=== PATIENT | female | born 1965 | race Caucasian/White ===

== ENCOUNTER → 2016-06-08 | Outpatient (CLI) | payer BC ==
[~2016-06-08] MED LIST: ALBUTEROL17 GM INH; AMLODIPINE BESYL5 MG PO; AZELASTINE137 MCG/0.; FLONASE 0.05% N16 GM; LEVOXYL112 MC1 PO; LEXAPRO20 MG PO; MIMVEY 1-0.5 M1 EACH PO; PROTONIX PO; RELAFEN500 MG PO; REQUIP1 MG PO; SYMBICORT INH; TOPIRAMATE100 MG PO; ZYLOPRIM100 MG PO
--- NOTE | ~2016-06-08 | CT134 ---
[facility] A Service of [facility] & [facility] RADIOLOGY TEXT RESULTS PATIENT: FRENCH MELENDEZ LOCATION: CIVR : 63 UNIT #: [id number] AGE: [address]: CONSTANCE ROJO APRN SEX: F ORDER DR: [id number] [facility]. [place], [place] [address] [id number] O MR#: [id number] Acc #: [id number] NAME: FRENCH MELENDEZ : 1965 SEX: F STUDY DATE/TIME: 06/08/2016 10:14 UNIT: CIVR ROOM: STUDY DESCRIPTION: CT Guide Attending Physician: Constance Rojo Aprn Referring Physician: Constance Rojo Aprn Ordering Physician: Constance Rojo Aprn Primary Care Physician: Constance Rojo Aprn MEDICAL IMAGING REPORT This report is preliminary unless electronic signature is present EXAM CT-guided liver biopsy INDICATION Abnormal elevated liver function test. TECHNIQUE This CT examination was performed with one or more of the following radiation dose reduction techniques: automatic exposure control, adjustment of mA and/or kV according to patient size, and iterative reconstruction. PROCEDURE The risks, benefits, and alternatives to the procedure were explained to the patient, and signed, informed consent was obtained. She was placed supine on the CT scanner gantry. Preliminary CT scan was performed through the region of interest. An appropriate site overlying the patient's right hepatic lobe was selected. The overlying skin was marked. Patient was prepped and draped in the usual sterile fashion. Time-out was performed as per protocol. Skin and subcutaneous tissues were anesthetized with buffered lidocaine. Anesthesia needle was left in place. Repeat CT scan confirmed appropriate position of the needle. A 17-gauge coaxial needle was advanced into the right hepatic lobe. At this point, 3 core samples were obtained using an 18-gauge BioPince biopsy gun. Needle was removed and manual pressure was applied until hemostasis was obtained. Patient tolerated the procedure well and there were no immediate complications. Patient did receive conscious sedation consisting of 5 mg of Versed and 175 mcg of Fentanyl. Continuous monitoring was provided by the IVR nurse for a total of 50 minutes. IMPRESSION Technically successful CT-guided liver biopsy as noted above. CT was used during the procedure and permanent images were saved. [facility] A Service of [facility] & [facility] RADIOLOGY TEXT RESULTS PATIENT: FRENCH MELENDEZ LOCATION: [facility] : 63 UNIT #: [id number] AGE: [address]: CONSTANCE ROJO APRN SEX: F ORDER DR: Dictated by... Shivani Andrew M.D. THIS IS AN ELECTRONICALLY VERIFIED REPORT Shivani Andrew M.D. at 06/11/2016 8:19 AM TALA/santi TD: 06/09/2016 11:11 JOB #: [id number] MEDICAL IMAGING REPORT Page 1 of 1 COPY
[2016-06-08 08:44] LABS: HEMATOCRIT 39.8 % (35.0-45.0); HEMOGLOBIN 13.2 gm/dL (12.0-16.0); MEAN CELL VOLUME 91.7 FL (83-96); MEAN CORPUSCULAR HEMOGLOBIN 30.5 PG (28-34); MEAN CORPUSCULAR HGB CONC 33.2 g/dL (30-36); MEAN PLATELET VOLUME 8.2 FL (6.5-11.5); RED BLOOD COUNT 4.34 X10e (3.90-5.30); RED CELL DISTRIBUTION WIDTH 14.9 % (11.0-15.5); WHITE BLOOD COUNT 10.7 X10e3 (4.0-10.5)
[2016-06-08 08:57] LABS: INR 0.9; PARTIAL THROMBOPLASTIN TIME 24.3 SECONDS (23.5-31.3); PROTHROMBIN TIME (PATIENT) 9.2 SECONDS (9.6-11.5)
[2016-06-09 21:09] LABS: ANA SCREEN Negative (Negative)
== END | disposition home or self-care (01) ==
LOC: CIVR 08:03
PROVIDERS: Nurse Practitioner
DX: K75.9 Inflammatory liver disease, unspecified (principal); K74.0 Hepatic fibrosis; R94.5 Abnormal results of liver function studies; J45.909 Unspecified asthma, uncomplicated
CPT/HCPCS: 36415; 77012; 82728; 83516; 83520; 85027; 85610; 85730; 86038; 86039; 88307; 88313; J2250; J3010

== ENCOUNTER → 2016-09-27 | Outpatient (CLI) | payer BC ==
[2016-09-27 16:26] LABS: HEMATOCRIT 38.1 % (35.0-45.0); HEMOGLOBIN 12.5 gm/dL (12.0-16.0); MEAN CELL VOLUME 91.7 FL (83-96); MEAN CORPUSCULAR HEMOGLOBIN 30.2 PG (28-34); MEAN CORPUSCULAR HGB CONC 32.9 g/dL (30-36); MEAN PLATELET VOLUME 7.9 FL (6.5-11.5); RED BLOOD COUNT 4.15 X10e (3.90-5.30); RED CELL DISTRIBUTION WIDTH 14.5 % (11.0-15.5); WHITE BLOOD COUNT 13.3 X10e3 (4.0-10.5)
[2016-09-27 16:51] LABS: ALBUMIN SERUM 3.7 g/dL (3.5-5.0); BILIRUBIN,TOTAL 0.3 mg/dL (0.2-2.0); BUN/CREATININE RATIO 13.63; CALCIUM SERUM 9.4 mg/dL (8.4-10.2); CREATININE SERUM 1.1 mg/dL (0.6-1.4); GLOM FILT RATE Estimated 57.7 mL/min (>60); POTASSIUM 4.3 mmol/L (3.5-5.1); PROTEIN TOTAL SERUM 7.2 g/dL (6.0-8.3)
== END | disposition home or self-care (01) ==
LOC: CLAB 16:10
PROVIDERS: Nurse Practitioner
DX: R79.89 Other specified abnormal findings of blood chemistry (principal)
CPT/HCPCS: 36415; 80053; 85027